=== PATIENT | male | born 1945 ===

== ENCOUNTER 2020-11-10 23:07 | Inpatient (IN) ==
[2020-11-11] MEDS ORDERED: NITROGLYCERIN SL 0.4 MG/TAB TAB SL PRN (05:01)
[2020-11-11] MEDS ORDERED: ONDANSETRON INJ 2 MG/ML 2 ML VIAL IV PRN (05:01)
[2020-11-11] MEDS ORDERED: ACETAMINOPHEN 325 MG TAB PO PRN (05:01)
[2020-11-11] MEDS ORDERED: PATIENT'S ALLERGY INFO NEEDS ENTERED SCH (05:30)
[2020-11-11 05:50] LABS: Basophils # (auto) 0.03 K/uL (0-0.2); Basophils % (auto) 0.5 %; Eosinophils # (auto) 0.12 K/uL (0-0.5); Eosinophils % (auto) 1.9 %; Hematocrit (blood only) 33.7 % (42-52); Hemoglobin 11.1 g/dL (14.0-18.0); Immature Granulocytes # (auto) 0.02 K/uL (0.00-0.02); Immature Granulocytes % (auto) 0.3 %; Lymphocytes # (auto) 1.63 K/uL (1.2-3.4); Lymphocytes % (auto) 25.6 %; Mean Corpuscular Hemoglobin 29.7 pg (25-34); Mean Corpuscular Hgb Conc 32.9 g/dL (32-36); Mean Corpuscular Volume 90.1 fL (80-100); Mean Platelet Volume 9.2 fL (7.4-10.4); Monocytes # (auto) 0.52 K/uL (0.11-0.59); Monocytes % (auto) 8.2 %; Neutrophils # (auto) 4.05 K/uL (1.4-6.5); Neutrophils % (auto) 63.5 %; Platelet Count 199 K/uL (130-400); RDW Coefficient of Variation 13.8 % (11.5-14.5); RDW Standard Deviation 45.1 fL (36.4-46.3); Red Blood Count 3.74 M/uL (4.7-6.1); White Blood Count 6.37 K/uL (4.8-10.8)
--- NOTE | 2020-11-11 06:02 | History & Physical Report ---
Date of Service November 11, 2020 Assessment & Plan (1) Flash pulmonary edema: Mr. Ling is a 74 yo gentleman with a PMHx of COPD who was directly admitted to [facility] from [facility] for further management and evaluation of flash pulmonary edema. Fortunately, by the time he arrived to our facility, he was off of BiPAP and saturating well on 3 liters of supplemental oxygen via nasal canula. - as for etiology, suspect patient has new onset congestive heart failure - supported by pulmonary edema, in the setting of an elevated BNP (5900) - progressive LE edema + increasing SOB suggestive of bilateral ventricular involvement - positive family history of CHF, improvement with positive pressure ventilation and direutic therapy also supportive of this etiology - appears to have dietary indiscretion. recommend a low sodium diet while inpatient and dietary education prior to discharge - repeat CXR on arrival to our facility - Lasix 20mg IV ordered on admission - ECho ordered - avoid IV fluids (2) COPD (chronic obstructive pulmonary disease): - history of - does not appear to be in exacerbation on present admission - significant pack year history (68? per outside records) + currently smoking - continue tiotropium daily; reinforce compliance - albuterol prn - likely a candidate for lung cancer screening - consider as outpatient (3) Acute kidney injury: - baseline Cr 1.6-1.7 - Cr at [facility] was 2.6, BUN of 32, ratio of 12 - patient did get dose of AGUSTÍN inhibitor at [facility] - dose of lasix at [facility] likely improved forward flow - Cr 2.56 on admission here - trend BMP (4) Diabetes: - insulin dependent - home regimen is NPH 70/30 60 units BID - BG in 300s on arrival - HbA1c ordered - glycemic consult - carb consistent diet - patient is on high intensity statin (5) Hx MRSA infection: - patient with Hx of MRSA infection of genital wound - he is apparently on chronic suppressive antibiotics (although he cannot recall name) - wound culture ordered - WBC not elevated; will hold off of antimicrobial therapy until records can be obtained - urology consult placed (6) Chronic indwelling Severino catheter: - purpose is uncertain - [facility] - urology consult as above (7) Elevated troponin: (8) Hypertension: - home medication regimen consists of atenolol 25mg daily (9) HLD (hyperlipidemia): - continue home statin and fenofibrate (10) GERD (gastroesophageal reflux disease): - continue home protonix (11) Depression: - continue home bupropion and fluoxetine (12) Peripheral neuropathy: - continue home dose gabapentin (13) BPH (benign prostatic hyperplasia): - continue home dose finasteride and flomax Diet: carb consistent, heart healthy, low sodium DVT: Heparin Dispo: PCU Code: Full Admission and Anticipated Discharge Date Admission Date: November 11, 2020 History of Present Illness Primary Care Provider: NO PCP Mr. Ling is a 74 yo gentleman with a PMHx of COPD who was directly admitted to [facility] from [facility] for management of flash pulmonary edema. Last evening Mr. Ling suddenly felt SOB when laying back in bed. He told his to call an ambulance - at the time EMS arrived, his pulse ox reading was in the 70s. They immediately placed him on CPAP and it improved to 90%. On arrival to the [place] ED, he was transitioned to BiPAP with the following settings: 16/8/40%. His pulse ox reading increased to the mid 90s at this facility. A blood gas obtained prior to his departure at [place] showed a pH of 7.37 and a bicarb PCo2 of 37. His blood pressure was elevated to 205/105 when he got to the [place] ED - he was treated with Lasix 40mg and Enalapril 1.25mg IV, and it reduced to 132/64. Of note, several days prior to presentation, Mr. Jaimes noticed his bilateral lower extremities were swollen. When discussing his diet, he states that he buys a salt substitute to put on his food. He does seem to eat many processed foods. With regards to his COPD, he states he has no baseline O2 requirement. He admits to non-compliance with his maintenance inhalers. He is a current everyday smoker. 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 He is also apparently on a daily antibiotic, although he does not know the name of it. It sounds as though this problem is cared for by the [place] system. Family Hx: Father - CHF, Mother- Parkinsons Social: Lives at home with ; smokes daily; no Eoth use At outside facility his BNP was elevated to 5900, his Cr was 2.6 (baseline 1.6- 1.7), BUN at 32. His trop was negative. On arrival to our facility, he was afebrile, his pulse was 75bpm, BP was 156/76, RR 17 and he was satting 97% on 3 liters via nasal cannula. 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 Beliefs That Will Affect Care: None Current Living Situation: Spouse and Family Other Information That Helps Us Care for You: No Feels Safe at Home: Yes Safety Concerns: Feels Safe At This Time Assistive Devices: Glasses Review of Systems Respiratory: + dyspnea; no cough Cardiovascular: + edema; no chest pain Physical Exam Constitutional: WD/WN, vitals as above + disheveled and cooperative; no acute distress Eyes: + anicteric sclerae ENMT: external ear and nose normal, oropharynx normal Neck: trachea midline, no thyromegaly Respiratory: normal respiratory effort; no respiratory distress and no cough Auscultation: + crackles (fine inspiratory crackels at bilateral bases) and + wheezes (diffusely present on expiration) Cardiovascular: Rate/Rhythm: regular rate and regular rhythm Heart Sounds: normal S1, normal S2 and + murmur Extremities: + pedal edema (+2 bilaterally) heart sounds distant Gastrointestinal (Abdomen): normal bowel sounds, soft, nontender, no hepatosplenomegaly Skin: no rashes, warm and dry Neurologic: moves all extremities Psychiatric: A+Ox3, euthymic affect Genitourinary: Severino catheter in place, draining yellow urine without visible blood clots + open wound on undesride of penis, draining purulent material Results & Data Results & Data ([facility]) Vital Signs (Past 12 Hours) Vital Signs Temp Pulse Resp BP BP Pulse Ox 11/11/20 05:00 76 15 97 06/20/21 04:39 76 24 93 11/11/20 04:36 82 23 160/79 H 95 11/11/20 04:30 36.6 C 15 160/79 H 93 11/11/20 04:29 75 17 156/76 H 95 Code Status & VTE Plan VTE Prophylaxis Plan VTE Prophylaxis will be ordered: Yes Supervising Physician Co-Signing Physician Notes Attending addendum: I have physically seen this patient, have supervised the medical residents activities, and agree with the H&P unless as otherwise noted. Assessment and Plan: Flash pulmonary edema- Patient accepted in transfer from [facility] emergency department Initially have been placed on CPAP by EMS due to pulse ox of 70% at home. Was then increased to BiPAP in the emergency department at [place] Patient improved significantly on enalapril 25 mg IV and furosemide 40 mg IV. Upon arrival to [facility], patient was no longer on BiPAP, but was still requiring oxygen Baseline laboratories ordered upon arrival: CBC with differential, chemistry profile, magnesium, serial troponins, EKG and chest x-ray. Order a complete echocardiogram Placed on Lasix 20 mg IV now every morning COPD/tobacco use disorder- Duonebs every 4 hours while awake and every 2 hours when necessary. Acute kidney injury on chronic kidney disease- Creatinine at [place] was 2.6, baseline 1.6-1.7 Follow laboratories daily as diuresing. Diabetes mellitus- Continue home regimen of insulin 70/30, 60 units subcu twice daily Check hemoglobin A1c Placed on Accu-Cheks before meals and at bedtime with NovoLog coverage per scale Remaining orders and notations as noted Resident Activity Tracking Resident Involvement: Resident Care Provided Care Provided: Adult Hospital Medicine
[2020-11-11 06:09] LABS: Albumin Level 2.9 gm/dl (3.4-5.0); BUN Creatinine Ratio 10.9 (10-20); Calcium 8.3 mg/dl (8.5-10.1); Creatinine Clr Calc Pharmacy 30.8 ml/min; Est GFR (African American) 27.7 ml/min; Est GFR (Non-African American) 23.9 ml/min; Magnesium 2.3 mg/dl (1.8-2.4); Potassium 4.5 mmol/L (3.5-5.1)
[2020-11-11 06:25] LABS: Albumin Globulin Ratio 0.8 (0.9-2); Beta-Hydroxybutyrate 1.4 mg/dl (0.2-2.81); Bilirubin,Total 0.2 mg/dl (0.2-1); Globulin 3.7 gm/dl (2.5-4.0); Total Protein 6.6 gm/dl (6.4-8.2); Troponin I 0.181 ng/ml (0-0.045)
[2020-11-11] MEDS ORDERED: PHARMACY GLYCEMIC MGMT CONSULT PRN (06:30)
[2020-11-11] MEDS ORDERED: GLUCAGON FOR INJ 1 MG VIAL IM PRN (06:45)
[2020-11-11] MEDS ORDERED: DEXTROSE 50% 50 ML SYRINGE IV PRN (06:45)
[2020-11-11] MEDS ORDERED: GLUCOSE 40% GEL 15 GM TUBE PO PRN (06:45)
[2020-11-11] MEDS ORDERED: FUROSEMIDE 20 MG in SYRINGE 0 ML IV ONE (06:45)
[2020-11-11] MEDS ORDERED: INSULIN HUMAN NPH SC ONE (06:45)
[2020-11-11] MEDS ORDERED: GLUCOSE 10 TABS/TUBE PO PRN (06:45)
[2020-11-11] MEDS ORDERED: FUROSEMIDE 40 MG/4 ML VIAL IV ONE (06:48)
[2020-11-11] MEDS ORDERED: ALBUTEROL HFA 8 GM INHALER INH PRN (07:03)
[2020-11-11] MEDS: INSULIN ASPART 100 UNITS/ML 3 ML PEN SC SCH ×4 (07:05→20:47)
--- NOTE | 2020-11-11 08:48 | XRay Report ---
XR chest 1V portable CLINICAL HISTORY: chf COMPARISON STUDY: No previous studies for comparison. FINDINGS: No pneumothorax. Moderate left pleural effusion. Dense opacity within left retrocardiac region could represent associa lei atelectasis/infiltrate. Diffuse reticular nodular prominence of pulmonary interstitium. Linear density at the left midlung mi ght represent atelectasis or scarring. Cardiomediastinal silhouette is within normal limits in size. Pulmonary vasculature is indistinct. Aorta is calcified. Osseous structures: unremarkable IMPRESSION: 1. Diffuse reticular nodular prominence of pulmonary interstitium might be seen in pulmonary edema. Moderate left pleural effusion associated with atelectasis/infiltrate at the left lower lung. 2. Atherosclerosis. ACT 112: Negative or not required by law. The above report was generated using voice recognition software. It may contain grammatical, syntax o r spelling errors. Electronically signed by: Genevieve Gracia DO 11/11/2020 8:47 AM
[2020-11-11] MEDS: HEPARIN SOD 5,000 UNIT/0.5 ML VIAL SQ SCH ×2 (09:31→20:46)
[2020-11-11] MEDS: UMECLIDINIUM BROMIDE 62.5MCG/BLISTER 7 PUFFS/INHALER INH SCH (09:31)
[2020-11-11] MEDS: BETHANECHOL CHL 25 MG TAB PO SCH ×3 (09:31→20:46)
[2020-11-11] MEDS: PANTOprazole 40 MG TAB PO SCH (09:31)
[2020-11-11] MEDS: GABAPENTIN 400 MG CAP PO SCH ×3 (09:31→20:46)
[2020-11-11] MEDS: buPROPion HCl 75 MG TABLET PO SCH ×2 (09:32→20:46)
[2020-11-11] MEDS: FINASTERIDE 5 MG TAB PO SCH (09:32)
[2020-11-11] MEDS: ATENOLOL 25 MG TABLET PO SCH (09:32)
[2020-11-11] MEDS: FENOFIBRATE NANOCRYSTALLIZED 145 MG TABLET PO SCH (09:32)
[2020-11-11] MEDS: FLUoxetine HCL 20 MG CAP PO SCH (09:32)
[2020-11-11] MEDS: TAMSULOSIN HCL 0.4 MG CAP PO SCH (09:32)
[2020-11-11] MEDS: ATORVASTATIN 40 MG TAB PO SCH (09:32)
--- NOTE | 2020-11-11 10:10 | Urology Consultation ---
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 His acquired hypospadias is simply a pressure ulcer from the catheter being pulled down under his leg This is a chronic process that is not actively infected and requires no intervention Continue the Harris catheter - f/u with his outpt urologist Call us if any other issues arise History of Present Illness Attending Physician: Rashida Huang DO History of Present Illness 74-year-old gentleman transitions to [place] from [place] secondary to pulmonary edema He is admitted to the ICU He appears to be quite clinically stable right now Urology consultation requested secondary to chronic Harris catheter He reports that he had this catheter for 2 years and [facility] Allergies Allergy/AdvReac Type Severity Reaction Status Date / Time No Known Allergies Allergy Unverified 11/11/20 06:07 Patient History Medical History Peripheral neuropathy Social History Smoking Status: Current every day smoker Do You Dip or Chew Tobacco: Yes; Tobacco Cessation Education Requested by Patient: No Hx Alcohol Use: No Hx Substance Use: No Preferred Language: Israeli Communication Ability: Effective Studio Sales Associate Required: No Beliefs That Will Affect Care: None Current Living Situation: Spouse and Family Other Information That Helps Us Care for You: No Feels Safe at Home: Yes Safety Concerns: Feels Safe At This Time Assistive Devices: Cane, Glasses and Hearing Aid - Left Review of Systems Constitutional: no fever, no chills and no fatigue Eyes: no worsening vision Ear, Nose, Mouth, Throat: no facial pain and no pain with swallowing Respiratory: + cough and + dyspnea Cardiovascular: no chest pain and no palpitations Gastrointestinal: no abdominal pain, no nausea and no vomiting Genitourinary: + problem reported Musculoskeletal: no back pain Integumentary: no rash and no urticaria Neurologic: no gait abnormality and no unsteadiness Psychiatric: no behavioral changes and no depression Endocrine: no fatigue Physical Exam Constitutional: well developed and well nourished Neck: neck nontender Respiratory: normal respiratory effort (Appears quite comfortable); no respiratory distress and does not use accessory muscles Cardiovascular: Rate/Rhythm: regular rate Vessels: radial pulses present Extremities: no edema Gastrointestinal (Abdomen): Inspection/Auscultation: abdomen normal to inspection Percussion/Palpation: abdomen soft; abdomen nontender and no guarding Musculoskeletal: Head/Neck/Chest: normocephalic and head atraumatic Extremities: extremities normal to inspection Skin: no rashes and no lesions Trauma: no evidence of skin trauma Neurologic: awake; not obtunded Speech / Cognition: normal speech Motor/Sensory: no tremor Psychiatric: Orientation: alert and oriented x 3 Genitourinary: + hypospadias; no CVA tenderness Harris catheter draining clear urine, acquired hypospadias secondary to catheter pressure, no evidence of infection Lymphatic: no lymphadenopathy Results & Data ([facility]) Vital Signs (Past 12 Hours) Vital Signs Temp Pulse Resp BP BP Pulse Ox 11/11/20 08:00 76 14 92 11/11/20 07:37 78 18 178/104 H 93 11/11/20 07:00 76 16 96 11/11/20 05:47 76 11/11/20 05:36 76 20 167/71 H 95 11/11/20 05:00 76 15 97 11/11/20 04:39 76 24 93 11/11/20 04:36 82 23 160/79 H 95 11/11/20 04:30 36.6 C 15 160/79 H 93 11/11/20 04:29 75 17 156/76 H 95 PG Care Time/CCT Total # of Minutes Spent Total Time Spent with Patient: Total time spent is greater than 50% in coordination of care (as documented) at patient's floor/unit and/or counseling patient: Coding Level of Care Code 25344 Inpt Consult Level 3 Diagnoses Chronic indwelling Harris catheter Z97.8
--- NOTE | 2020-11-11 10:27 | Pharmacy Report ---
Pharmacy Glycemic Short Note 2 - Date of Service November 11, 2020 - Glycemic Short BSG Results (Last 24 hours): 11/11/20 11/11/20 05:04 05:34 Glucose 347 H* POC Glucose 329 H* OUTPATIENT ANTIDIABETIC REGIMEN: * NPH 70/30 - 60 units SC BID * HbA1c pending ASSESSMENT: * 74 yo M admitted from [facility] secondary to flash pulmonary edema in setting of new onset heart failure. Pharmacy has been consulted to assist with inpatient glycemic management. Outpatient regimen is unknown at this time but HPI does mention NPH 70/30 60 units BID. Patient is ordered a T2DM diet at this time. SCr is significantly elevated at 2.56 mg/dL (baseline 1.6 mg/dL). * BSG upon admission was 329-347 mg/dL. Patient was given a one time dose of 40 units NPH. He has been started on Novolog based on weight and stress of three. Pending lunch BSG, will likely start NPH 40 units BIDM for now. If BSGs continue to trend upwards, patient may require an insulin drip. * ADA & AACE recommend a goal blood sugar range 140-180 mg/dl for the majority of critically ill & non-critically ill patients. However, more stringent targets may be selected in individual cases. Will utilize more stringent goal of 120-160 mg/dl based on patient age & comorbidities. PLAN FOR INPATIENT GLYCEMIC CONTROL: * Basal insulin * NPH 40 units SC BIDM * Bolus insulin * NovoLog per scale ACHS or Q6hrs while NPO * Goal Range: Low 120 mg/dL - High 160 mg/dL * Correction Factor: 15 mg/dL/unit * Nutritional / Prandial insulin per carb ratio of 1 unit per 5 grams CHO consumed PLAN FOR DISCHARGE: * To be determined
--- NOTE | 2020-11-11 11:04 | XCELERA ---
[id number]
--- NOTE | 2020-11-11 13:07 | Electrocardiogram Report ---
Test Reason : Blood Pressure : / mmHG Vent. Rate : 076 BPM Atrial Rate : 076 BPM P-R Int : 204 ms QRS Dur : 132 ms QT Int : 438 ms P-R-T Axes : 042 -45 058 degrees QTc Int : 492 ms Normal sinus rhythm Left axis deviation Non-specific intra-ventricular conduction block Abnormal ECG No previous ECGs available Confirmed by Lam Shah ([id number]) on 11/11/2020 1:07:17 PM Referred By: REFERRED SELF Confirmed By:John Shah
[2020-11-11] MEDS: NICOTINE 7 MG/24 HR TDSY TD SCH (13:37)
--- NOTE | 2020-11-11 16:29 | XRay Report ---
XR chest 1V portable HISTORY: Shortness of breath. pulmonary edema COMPARISON: 11/11/2020. FINDINGS: No pneumothorax. Small left pleural effusion and left basilar densities have slightly impro amy. The pulmonary edema has almost completely resolved in the interval. The heart remains enlarged. There are healing/healed left-sided rib fractures. IMPRESSION: Interval improvement in the pulmonary edema and left basilar opacity/effusion. ACT 112: Negative or not required by law. Electronically signed by: Perez Saez M.D. 11/11/2020 4:28 PM
--- NOTE | 2020-11-11 16:33 | Hospitalist Progress Note ---
Date of Service November 11, 2020 Assessment & Plan (1) Flash pulmonary edema: Mr. Ling is a 74 yo gentleman with a PMHx of COPD who was directly admitted to [facility] from [facility] for further management and evaluation of flash pulmonary edema. Fortunately, by the time he arrived to our facility, he was off of BiPAP and saturating well on 3 liters of supplemental oxygen via nasal canula. - as for etiology, suspect patient has new onset congestive heart failure - supported by pulmonary edema, in the setting of an elevated BNP (5900); progressive LE edema + increasing SOB suggestive of bilateral ventricular involvement - positive family history of CHF, improvement with positive pressure ventilation and direutic therapy also supportive of this etiology - appears to have dietary indiscretion. recommend a low sodium diet while inpatient and dietary education prior to discharge - repeat CXR on arrival to our facility - Lasix 20mg IV ordered on admission - Echo ordered: LV function normal, moderate LV concentric hypertrophy, mild LA dilation - 11/11: patient satting ~90% on RA; will keep patient overnight and continue to monitor, O2 prn to keep sat >89% - repeat CXR in AM (2) COPD (chronic obstructive pulmonary disease): - history of - does not appear to be in exacerbation on present admission - significant pack year history (68? per outside records) + currently smoking - continue tiotropium daily; reinforce compliance - albuterol prn - likely a candidate for lung cancer screening - consider as outpatient (3) Acute kidney injury: - baseline Cr 1.6-1.7 - Cr [facility] was 2.6, BUN of 32, ratio of 12 - patient did get dose of AGUSTÍN inhibitor at [facility] - dose of lasix at [facility] likely improved forward flow - Cr 2.56 on admission here - trend BMP (4) Diabetes: - insulin dependent - home regimen is NPH 70/30 60 units BID - BG in 300s on arrival - HbA1c ordered - glycemic consult - carb consistent diet - patient is on high intensity statin (5) Hx MRSA infection: (6) Chronic indwelling Harris catheter: - purpose is uncertain; [facility] - urology consulted: patient's wound represents acquired hyposadias from indwelling catheter being caught under leg and creating a pressure ulcer; requries no active intervention (7) Elevated troponin: (8) Hypertension: - home medication regimen consists of atenolol 25mg daily (9) HLD (hyperlipidemia): - continue home statin and fenofibrate (10) GERD (gastroesophageal reflux disease): - continue home protonix (11) Depression: - continue home bupropion and fluoxetine (12) Peripheral neuropathy: - continue home dose gabapentin (13) BPH (benign prostatic hyperplasia): - continue home dose finasteride and flomax Diet: carb consistent, heart healthy, low sodium DVT: Heparin Dispo: PCU Code: Full Admission and Anticipated Discharge Date Admission Date: November 11, 2020 Supervising Physician Co-Signing Physician Notes Patient seen and examined independently of PGY 1 Dr. Rivera. Agree with history, exam findings, assessment and plan of care as outlined with the following updates: In brief, Mr. Ling is a 74-year-old male with history of COPD who was transferred to [facility] for management and evaluation of new onset pulmonary edema. Today, he is feeling well. He denies any dyspnea. He reports that he has been able to lie flat on his back without any shortness of breath. Denies chest pain. Does report that he has been eating quite a bit of canned [employer] chicken noodle soup prior to admission. He has noticed some increased swelling in his legs as well as his fingers. He reports that he had trouble removing his wedding ring from his finger. He reports that he does have some chronic swelling of the lower extremities had not noticed any huge difference in the swelling previously. He has used compression stockings in the past. Vital signs and nursing notes reviewed. Well-appearing. Heart with regular rate and rhythm. No murmur. Trace pitting edema to the knee bilateral extremities. Breathing comfortably on room air. He is able to speak in full sentences. Fine crackles at the bases. No wheezing or rhonchi. Fair air movement throughout. Labs and imaging reviewed. BNP on admission is 5900. Troponin is 0.181, repeat troponin 1.91. Cr 2.56. Chest x-ray with pulmonary edema and moderate left pleural effusion on admission, repeat chest x-ray this afternoon with some interval improvement. Transthoracic echo with EF of 50 to 55%, moderate concentric left ventricular hypertrophy, moderate left atrial dilation. 1. Pulmonary edema. Possibly secondary to salt sensitivity, new onset heart failure with preserved ejection fraction. Echo as above. Repeat chest x-ray shows some interval improvement in the pulmonary edema. Consider another dose of Lasix in the morning if his creatinine is stable or improved. Repeat chest x-ray in the morning. 2. GENEVIEVE on CKD. Creatinine on admission is 2.56, baseline is 1.6-1.7. May improve with diuresis. 3. Diabetes. Hemoglobin A1c is pending. Glycemic consult. 4. Elevated troponin. Likely secondary to demand mismatch in the setting of new onset pulmonary edema. Troponins are essentially flat. 5. COPD, secondary to tobacco use. Continue tiotropium daily. Albuterol as needed. 6. Tobacco use. Continue with nicotine replacement.Not ready to quit. 7. Chronic indwelling Harris catheter. Seen by urology today. Appreciate urology insight and recommendations. 8. Hypertension and hyperlipidemia. Continue atenolol, statin and fenofibrate. Other chronic issues are stable and home medications were continued. Disposition: May need additional diuresis tomorrow morning depending on how he is doing overnight. If he is doing well potential for discharge tomorrow. Subjective See today's H&P Review of Systems Review of Systems: See today's H&P Physical Exam Physical Exam: See today's H&P Results & Data Results & Data ([facility]) Vital Signs (Past 12 Hours) Vital Signs Temp Pulse Resp BP BP Pulse Ox 11/11/20 15:58 69 11/11/20 15:36 68 16 132/67 91 11/11/20 14:36 69 14 129/63 93 11/11/20 14:00 70 13 92 11/11/20 13:36 69 14 121/61 92 11/11/20 12:35 70 12 139/68 92 11/11/20 12:00 71 14 94 11/11/20 11:37 72 15 93 11/11/20 11:36 36.6 C 72 14 134/82 90 11/11/20 10:35 71 13 149/79 H 94 11/11/20 10:00 69 16 93 11/11/20 09:55 70 17 121/64 92 11/11/20 08:00 36.5 C 76 14 92 11/11/20 07:37 78 18 178/104 H 93 11/11/20 07:00 76 16 96 11/11/20 05:47 76 11/11/20 05:36 76 20 167/71 H 95 06/20/21 05:00 76 15 97 11/11/20 04:39 76 24 93 11/11/20 04:36 82 23 160/79 H 95 11/11/20 04:30 36.6 C 15 160/79 H 93 11/11/20 04:29 75 17 156/76 H 95 Resident Activity Tracking Resident Involvement: Resident Care Provided Care Provided: Adult Hospital Medicine
[2020-11-11] MEDS ORDERED: INSULIN HUMAN NPH SC SCH (17:00)
[2020-11-12] MEDS ORDERED: INSULIN ASPART 100 UNITS/ML 3 ML PEN SC SCH (02:00)
[2020-11-12] MEDS: CARBOHYDRATES FOR HYPOGLYCEMIA PO PRN ×2 (02:02→02:23)
--- NOTE | 2020-11-12 05:31 | Billing Data ---
Date of Service November 12, 2020 Coding Level of Care Code 82674 Initial Inpt Care Lvl 3
[2020-11-12 06:21] LABS: Basophils # (auto) 0.04 K/uL (0-0.2); Basophils % (auto) 0.6 %; Eosinophils # (auto) 0.14 K/uL (0-0.5); Eosinophils % (auto) 2.2 %; Hemoglobin 10.6 g/dL (14.0-18.0); Immature Granulocytes # (auto) 0.02 K/uL (0.00-0.02); Immature Granulocytes % (auto) 0.3 %; Lymphocytes # (auto) 1.62 K/uL (1.2-3.4); Lymphocytes % (auto) 25.3 %; Mean Corpuscular Hgb Conc 33.1 g/dL (32-36); Mean Corpuscular Volume 90.7 fL (80-100); Mean Platelet Volume 9.4 fL (7.4-10.4); Monocytes # (auto) 0.51 K/uL (0.11-0.59); Neutrophils # (auto) 4.07 K/uL (1.4-6.5); Neutrophils % (auto) 63.6 %; Platelet Count 212 K/uL (130-400); RDW Coefficient of Variation 13.6 % (11.5-14.5); RDW Standard Deviation 44.5 fL (36.4-46.3); Red Blood Count 3.53 M/uL (4.7-6.1)
[2020-11-12 06:32] LABS: Partial Thromboplastin Time 25.4 Seconds (21.0-31.0); Prothrombin Time 10.3 Seconds (9.0-12.0)
[2020-11-12 06:53] LABS: Estimated Average Glucose 220 mg/dl; Hemoglobin A1C 9.3 % (4.5-5.6)
[2020-11-12 06:57] LABS: Albumin Level 2.6 gm/dl (3.4-5.0); BUN Creatinine Ratio 11.6 (10-20); Calcium 8.1 mg/dl (8.5-10.1); Creatinine Clr Calc Pharmacy 30.4 ml/min; Est GFR (African American) 27.3 ml/min; Est GFR (Non-African American) 23.5 ml/min; Magnesium 2.1 mg/dl (1.8-2.4); Potassium 4.3 mmol/L (3.5-5.1)
[2020-11-12 07:00] LABS: Albumin Globulin Ratio 0.8 (0.9-2); Bilirubin,Total 0.2 mg/dl (0.2-1); Globulin 3.4 gm/dl (2.5-4.0)
[2020-11-12] MEDS ORDERED: INSULIN HUMAN NPH SC SCH ×3 (08:00→17:00)
[2020-11-12] MEDS: INSULIN ASPART 100 UNITS/ML 3 ML PEN SC SCH ×2 (09:02→11:49)
[2020-11-12] MEDS: GABAPENTIN 400 MG CAP PO SCH (09:03)
[2020-11-12] MEDS: HEPARIN SOD 5,000 UNIT/0.5 ML VIAL SQ SCH (09:03)
[2020-11-12] MEDS: BETHANECHOL CHL 25 MG TAB PO SCH (09:04)
[2020-11-12] MEDS: TAMSULOSIN HCL 0.4 MG CAP PO SCH (09:04)
[2020-11-12] MEDS: PANTOprazole 40 MG TAB PO SCH (09:04)
[2020-11-12] MEDS: buPROPion HCl 75 MG TABLET PO SCH (09:04)
[2020-11-12] MEDS: ATORVASTATIN 40 MG TAB PO SCH (09:04)
[2020-11-12] MEDS: FENOFIBRATE NANOCRYSTALLIZED 145 MG TABLET PO SCH (09:04)
[2020-11-12] MEDS: FINASTERIDE 5 MG TAB PO SCH (09:04)
[2020-11-12] MEDS: ATENOLOL 25 MG TABLET PO SCH (09:04)
[2020-11-12] MEDS: UMECLIDINIUM BROMIDE 62.5MCG/BLISTER 7 PUFFS/INHALER INH SCH (09:05)
[2020-11-12] MEDS: FLUoxetine HCL 20 MG CAP PO SCH (09:05)
[2020-11-12] MEDS: NICOTINE 7 MG/24 HR TDSY TD SCH (09:05)
--- NOTE | 2020-11-12 12:15 | Pharmacy Report ---
Pharmacy Glycemic Short Note 2 - Date of Service November 12, 2020 - Glycemic Short BSG Results (Last 24 hours): 11/11/20 11/11/20 11/12/20 16:37 20:10 01:56 Glucose POC Glucose 119 H 105 H 56 L* 11/12/20 11/12/20 11/12/20 02:18 02:36 06:06 Glucose 146 H POC Glucose 69 L* 92 11/12/20 11/12/20 07:13 11:10 Glucose POC Glucose 153 H 209 H OUTPATIENT ANTIDIABETIC REGIMEN: * NPH 70/30 - 60 units SC BID * HbA1c pending ASSESSMENT: * Patient received a total of 118 units of insulin yesterday, 80 of which were NPH. This is very similar to outpatient regimen. However BSGs trended down progressively yesterday with a hypoglycemic episode overnight. * Will significantly decrease NPH dosing (~35% reduction in AM dose, ~60% reduction in evening dose). Novolog scale was already loosened last evening. Will continue with that dosing regimen for now. 11/11 * 74 yo M admitted from [facility] secondary to flash pulmonary edema in setting of new onset heart failure. Pharmacy has been consulted to assist with inpatient glycemic management. Outpatient regimen is unknown at this time but HPI does mention NPH 70/30 60 units BID. Patient is ordered a T2DM diet at this time. SCr is significantly elevated at 2.56 mg/dL (baseline 1.6 mg/dL). * BSG upon admission was 329-347 mg/dL. Patient was given a one time dose of 40 units NPH. He has been started on Novolog based on weight and stress of three. Pending lunch BSG, will likely start NPH 40 units BIDM for now. If BSGs continue to trend upwards, patient may require an insulin drip. * ADA & AACE recommend a goal blood sugar range 140-180 mg/dl for the majority of critically ill & non-critically ill patients. However, more stringent targets may be selected in individual cases. Will utilize more stringent goal of 120-160 mg/dl based on patient age & comorbidities. PLAN FOR INPATIENT GLYCEMIC CONTROL: * Basal insulin * NPH 25 units SC qam with breakfast * NPH 15 units SC with dinner * Bolus insulin * NovoLog per scale ACHS or Q6hrs while NPO * Goal Range: Low 120 mg/dL - High 160 mg/dL * Correction Factor: 20 mg/dL/unit * Nutritional / Prandial insulin per carb ratio of 1 unit per 7 grams CHO consumed PLAN FOR DISCHARGE: * To be determined
--- NOTE | 2020-11-12 14:56 | Discharge Summary ---
Date of Service November 12, 2020 Admission HPI Per Admitting Provider Mr. Ling is a 74 yo gentleman with a PMHx of COPD who was directly admitted to [facility] from [facility] for management of flash pulmonary edema. Last evening Mr. Ling suddenly felt SOB when laying back in bed. He told his to call an ambulance - at the time EMS arrived, his pulse ox reading was in the 70s. They immediately placed him on CPAP and it improved to 90%. On arrival to the [facility], he was transitioned to BiPAP with the following settings: 16/8/40%. His pulse ox reading increased to the mid 90s at this facility. A blood gas obtained prior to his departure at [facility] showed a pH of 7.37 and a bicarb PCo2 of 37. His blood pressure was elevated to 205/105 when he got to the [facility] - he was treated with Lasix 40mg and Enalapril 1.25mg IV, and it reduced to 132/64. Of note, several days prior to presentation, Mr. Jaimes noticed his bilateral lower extremities were swollen. When discussing his diet, he states that he buys a salt substitute to put on his food. He does seem to eat many processed foods. With regards to his COPD, he states he has no baseline O2 requirement. He admits to non-compliance with his maintenance inhalers. He is a current everyday smoker. 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 He is also apparently on a daily antibiotic, although he does not know the name of it. It sounds as though this problem is cared for by the [facility] system. Family Hx: Father - CHF, Mother- Parkinsons Social: Lives at home with ; smokes daily; no Eoth use At outside facility his BNP was elevated to 5900, his Cr was 2.6 (baseline 1.6- 1.7), BUN at 32. His trop was negative. On arrival to our facility, he was afebrile, his pulse was 75bpm, BP was 156/76, RR 17 and he was satting 97% on 3 liters via nasal cannula. Admission Exam Per Admitting Provider Constitutional: WD/WN, vitals as above + disheveled and cooperative; no acute distress Eyes: + anicteric sclerae ENMT: external ear and nose normal, oropharynx normal Neck: trachea midline, no thyromegaly Respiratory: normal respiratory effort; no respiratory distress and no cough Auscultation: + crackles (fine inspiratory crackels at bilateral bases) and + wheezes (diffusely present on expiration) Cardiovascular: Rate/Rhythm: regular rate and regular rhythm Heart Sounds: normal S1, normal S2 and + murmur Extremities: + pedal edema (+2 bilaterally) heart sounds distant Gastrointestinal (Abdomen): normal bowel sounds, soft, nontender, no hepatosplenomegaly Skin: no rashes, warm and dry Neurologic: moves all extremities Psychiatric: A+Ox3, euthymic affect Genitourinary: Severino catheter in place, draining yellow urine without visible blood clots + open wound on undesride of penis, draining purulent material Principal Diagnosis pulmonary edema Discharge Exam GENERAL: No acute distress. Well developed and well nourished. Vital signs reviewed as above. EYES: EOMI. Anicteric sclerae. HENT: Moist mucous membranes. RESPIRATORY: Clear to auscultation bilaterally. No wheezing, rales, or rhonchi. CARDIOVASCULAR: Regular rate and rhythm. + murmur. Trace BLE edema. ABDOMEN: Soft, non-tender and non-distended. Normal bowel sounds. EXTREMITIES: Non-tender. SKIN: Warm, dry. NEUROLOGIC: A/O x3. No focal neurological deficits. PSYCHIATRIC: Cooperative. Appropriate mood and affect. Discharge Data Allergies Allergy/AdvReac Type Severity Reaction Status Date / Time No Known Allergies Allergy Unverified 11/11/20 06:07 Consultations 11/11/20 05:36 Consult Urology Routine 11/11/20 06:23 Consult Health Information Management Routine Hospital Course (1) Flash pulmonary edema: Mr. Ling is a 74 yo gentleman with a PMHx of COPD who was directly admitted to [facility] from [facility] for further management and evaluation of flash pulmonary edema. Fortunately, by the time he arrived to our facility, he was off of BiPAP and saturating well on 3 liters of supplemental oxygen via nasal canula. Pulmonary edema - as for etiology, suspect patient has new onset congestive heart failure - supported by pulmonary edema, in the setting of an elevated BNP (5900); progressive LE edema + increasing SOB suggestive of bilateral ventricular involvement - positive family history of CHF, improvement with positive pressure ventilation and diuretic therapy also supportive of this etiology - length discussion with patient regarding low sodium diet; recommend outpatient follow up and continued encouragedment with dietary choices - Echo on admission: LV function normal, moderate LV concentric hypertrophy, mild LA dilation - Patient started on lisinopril 5mg po daily and b-ajay changed from atenolol 25mg po daily to metoprolol 25mg po daily for treatment of HFpEF - Patient satting > 94% on RA and able to ambulate while maintaining O2 sats > 94% RA on day of discharge (2) COPD (chronic obstructive pulmonary disease): - history of COPD; does not appear to be in exacerbation on present admission - significant pack year history (68? per outside records) + currently smoking - continue tiotropium daily; reinforce compliance - likely a candidate for lung cancer screening - consider as outpatient (3) Acute kidney injury: - baseline Cr 1.6-1.7 - Cr at outside hospital was 2.6, BUN of 32, ratio of 12 - patient did get dose of AGUSTÍN inhibitor at outside hospital; dose of lasix at outside hospital likely improved forward flow - Cr 2.56 on admission here; 2.59 on day of discharge - Recommend outpatient follow up and repeat BMP in 2-3 days (4) Diabetes: - insulin dependent - home regimen is NPH 70/30 60 units BID - BG in 300s on arrival - HbA1c 9.3% - Discussed importance of carb consistent diet - Recommend outpatient follow up and further management - patient is on high intensity statin (5) Hx MRSA infection: (6) Chronic indwelling Severino catheter: - purpose is uncertain; [facility] but we were unfortunately unable to review these prior to his discharge - urology consulted: 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 being caught under leg and creating a pressure ulcer; requires no active intervention - recommend outpatient urology follow up for further discussion and management of the catheter (7) Elevated troponin: (8) Hypertension: - Adjusted home medication regimen as noted above -- to summarize, discontinued atenolol and started patient on metoprolol 25mg po daily (9) HLD (hyperlipidemia): - continue home statin and fenofibrate (10) GERD (gastroesophageal reflux disease): - continue home protonix (11) Depression: - continue home bupropion and fluoxetine (12) Peripheral neuropathy: - continue home dose gabapentin (13) BPH (benign prostatic hyperplasia): - continue home dose finasteride and flomax Total Time Total Time Spent Total Time Spent (In Minutes): <30 Discharge Plan Discharge Items Patient Disposition: Home - Self-Care Reason For Visit: PULMONARY EDEMA Discharge Diagnosis: pulmonary edema Condition on Discharge: Good Activity: Resume your previous activity Non-emergency contact: Primary Care Provider Call non-emergency contact if: you have any medication questions and your symptoms worsen Follow-up/Referrals: PCP,NO [Primary Care Provider] - Diet: Low Sodium (2gm) Addtl Attending Provider Instructions: Mr. Ling, It was our pleasure to care for you at [facility] from 11/11/20 to 11/12/20. You were initially transferred here from [facility] due to worsening shortness of breath. As we have discussed with you, it appears that you had fluid back up into your lungs causing the shortness of breath - this is what we call pulmonary edema. This is likely related to back up of fluid from the heart that was too much for your heart to effectively pump out. It is important that you monitor your diet and keep to a low sodium diet ( less than [id number] grams of sodium per day). Additionally, you are being started on two new medications: 1. Metoprolol 25mg by mouth daily and 2 . Lisinopril 5mg by mouth daily. You should STOP your home Atenolol. Otherwise, continue your other home medications. Please follow up with your primary care doctor in 2-3 days. Follow up with your urologist regarding management of your urinary catheter. Call 911 or return to the ER for worsening symptoms including worsening shortnes s of breath or chest pain. Pending Studies at Discharge: No Stand-Alone Forms: My [facility] [employer], Smoking Cessation Medications and DC Order Prescriptions: New atorvastatin 40 mg Tablet 80 mg PO QAM 30 Days Qty: 60 RF: 0 gabapentin 400 mg Capsule 400 mg PO TID 30 Days Qty: 90 RF: 0 bethanechol chloride 25 mg Tablet 25 mg PO TID 30 Days Qty: 90 RF: 0 tamsulosin 0.4 mg Capsule 0.4 mg PO QAM 30 Days Qty: 30 RF: 0 pantoprazole 40 mg Tablet,Delayed Release (Dr/Ec) 40 mg PO QAM 30 Days Qty: 30 RF: 0 Novolin N NPH U-100 Insulin 100 unit/mL Suspension 25 unit SC TODAY@0800 30 Days RF: 0 Novolin N NPH U-100 Insulin 100 unit/mL Suspension 15 unit SC TODAY@1700 30 Days RF: 0 bupropion HCl 75 mg Tablet 75 mg PO BID 30 Days Qty: 60 RF: 0 albuterol sulfate [Ventolin HFA] 90 mcg/actuation Hfa Aerosol Inhaler 2 puff inhalation Q4H PRN (Reason: shortness of breath or wheezing) 30 Days RF: 0 fluoxetine 20 mg Capsule 20 mg PO QAM 30 Days Qty: 30 RF: 0 finasteride [Proscar] 5 mg Tablet 5 mg PO QAM 30 Days Qty: 30 RF: 0 fenofibrate nanocrystallized 145 mg Tablet 145 mg PO QAM 30 Days Qty: 30 RF: 0 Incruse Ellipta 62.5 mcg/actuation Blister With Device 1 puff inhalation QAM 30 Days RF: 0 lisinopril 5 mg tablet 5 mg PO DAILY Qty: 30 RF: 0 metoprolol succinate 25 mg tablet extended release 24 hr 25 mg PO DAILY Qty: 30 RF: 0 Discharge Orders: Discharge Order (Routine); Ordered 11/12/20 Ordered By: Adilene Medina Admission Data Admit Date/Time: 11/11/20 04:27 Attending Provider: Zak Goode Admit Provider: Bladimir Chandler Primary Care Provider: PCP,NO Other Providers: Arnulfo Will ; [facility] ; Rashida Huang Other Interventions: Discharge Summary Assessment (RN) Last Done: 11/12/20 15:07 Supervising Physician Co-Signing Physician Notes I personally examined the patient and verified all wright points of history and exam, discussed case, and agree with decision making with Dr Medina. feeling better breathing better diet reviewed eats canned soup. gleason. lunchmeat. vitals noted nad heent nc at mmm lungs cta b/l no rrw good effort pulmonary edema - acute diastolic chf - diuresed. educated on sodium. he expresses understanding. walked without desaturation. stable for home. otherwise as above Resident Activity Tracking Resident Involvement: Resident Care Provided Care Provided: Adult Hospital Medicine
--- NOTE | 2020-11-12 19:07 | Billing Data ---
Date of Service November 12, 2020 Coding Level of Care Code D/C Day Management <30 mins
== END 2020-11-12 16:17 | disposition home or self-care (01) | DRG 947 ==
LOC: SUATTDRO 11-11 04:27 → 1E 11-11 04:27 → 2S 11-11 18:58